=== PATIENT | female | born 1980 | race African-American/Black ===

== ENCOUNTER 2016-09-21 13:52 | Emergency (ER) | payer MEDICAID ==
[~2016-09-21] VITALS: Ht 175.3 cm; Wt 110.0 kg
[2016-09-21 13:53] VITALS: BP 143/104; PULSE 90; RESP 17; TEMP 98; O2SAT 100
[2016-09-21] MEDS ORDERED: methylPREDNISolone SOD SUCC 125 MG/2 ML VIAL IM ONE (14:30)
[2016-09-21] MEDS ORDERED: TRIA.1%T TOPICAL (14:34)
[2016-09-21] MEDS ORDERED: PRED5PAK PO (14:34)
--- NOTE | 2016-09-21 14:34 | PD ---
HPI Chief Complaint: Allergic/Adverse Reaction Time Seen by Provider: 14:24 Travel History International Travel<30 days: No Contact w/Intl Traveler<30days: No Traveled to known affect area: No History of Present Illness HPI Patient presents with complaints of a rash on her bilateral arms. Reports going to the beach yesterday. No known exposure. She did take Benadryl with improvement of her symptoms. Denies any shortness of breath. Denies any urinary or bowel symptoms. Reports that the rashes primarily on her arms. States it is itchy. PFSH Past Medical History Diminished Hearing: No Influenza Vaccination: Yes ?: Not LMP: 09/12/16 Past Surgical History Cholecystectomy: Yes Oral Surgery: Yes Social History Alcohol Use: Yes Tobacco Use: Yes Allergies-Medications (Allergen,Severity, Reaction): Coded Allergies: Shellfish (Verified Allergy, Severe, DOESN'T KNOW, 09/21/16) Hydrocodone (Verified Allergy, Unknown, 09/21/16) Penicillin (Verified Allergy, Unknown, 09/21/16) Reported Meds & Prescriptions Reported Meds & Active Scripts Active No Active Prescriptions or Reported Medications Review of Systems General / Constitutional: No: Fever Eyes: No: Visual changes HENT: No: Headaches Cardiovascular: No: Chest Pain or Discomfort Respiratory: No: Shortness of Breath Gastrointestinal: No: Abdominal Pain Genitourinary: No: Dysuria Musculoskeletal: No: Pain Skin: Positive Rash Neurologic: No: Weakness Psychiatric: No: Depression Endocrine: No: Polydipsia Hematologic/Lymphatic: No: Easy Bruising Physical Exam Narrative GENERAL: Well-nourished, well-developed patient. SKIN: Focused skin assessment warm/dry. HEAD: Normocephalic. EYES: No scleral icterus. No injection or drainage. NECK: Supple, trachea midline. No JVD or lymphadenopathy. CARDIOVASCULAR: Regular rate and rhythm without murmurs, gallops, or rubs. RESPIRATORY: Breath sounds equal bilaterally. No accessory muscle use. GASTROINTESTINAL: Abdomen soft, non-tender, nondistended. MUSCULOSKELETAL: No cyanosis, or edema. BACK: Nontender without obvious deformity. No CVA tenderness. Diffuse contact dermatitis noted to the bilateral hands and forearms, no rashes appreciated on the trunk or lower extremities. Data Data Last Documented VS Vital Signs Date Time Temp Pulse Resp B/P Pulse Ox O2 Delivery O2 Flow Rate FiO2 09/21/16 13:53 98.0 90 17 143/104 100 Orders Methylprednisolone So Succ Inj (Solumedr (09/21/16 14:30) MDM Medical Decision Making Medical Screen Exam Complete: Yes Emergency Medical Condition: Yes Differential Diagnosis Contact dermatitis, cellulitis, allergy, and I'm unable exposure Narrative Course Assessment and plan discussed with patient at bedside. Patient received Solu- Medrol injection without palpitation. Diagnosis Primary Impression: Contact dermatitis Qualified Code: L25.9 - Contact dermatitis, unspecified contact dermatitis type, unspecified trigger Patient Instructions: General Instructions Additional Instructions: Encouraged to continue with Benadryl, oral steroid taper, topical steroid cream. Encouraged follow-up with PCP. Return him or trauma with any new onset of symptoms Med/Other Pt SpecificInfo: Prescription(s) given Scripts Triamcinolone Topical 0.1% Cream1 Applic TOPICAL BID 5 Days Ref 0 Prov:Casey Diamond MD 09/21/16 Prednisone (21) 5 mg tab Dose Pack 5 Mg Dspk5 Mg PO DIRECTED #1 DSPK Ref 0 Prov:Casey Diamond MD 09/21/16 Disposition: 01 DISCHARGE HOME Condition: Good Casey Diamnod MD Sep 21, 2016 14:34
== END 2016-09-21 14:53 | disposition home or self-care (01) ==
LOC: PHED 13:52
DX: L25.9 Unspecified contact dermatitis, unspecified cause (principal); Z72.0 Tobacco use
CPT/HCPCS: 96372; 99284; J2930